=== PATIENT | male | born 1975 | race Caucasian/White ===

== ENCOUNTER 2020-05-17 13:54 | Emergency (ER) | payer OTHER ==
[2020-05-17 13:59] VITALS: BP 138/90; PULSE 73; RESP 18; TEMP 98
--- NOTE | 2020-05-17 14:16 | ED ---
Back Pain HPI - General Chief Complaint: Back Pain/Injury Stated Complaint: Fall-Back Pain Source: patient Limitations: no limitations - History of Present Illness Initial Comments: 44-year-old male presenting to the emergency department with a chief complaint of a back injury. Patient reports incident occurred yesterday while he was walking down the stairs. Patient states he was carrying things and both of his hands when his foot slipped and he fell mostly on the right side of his lower back. Patient reports he felt like his back was "locking up". He states he has been taking ibuprofen which has alleviated his symptoms. States that he is completely back to baseline but his employer is requiring a work note for clearance. Patient denies any head injuries, blood thinners or LOC. Denies any saddle anesthesia, urinary retention with overflow incontinence or bowel incontinence. - Related Data Previous Rx's Medication Instructions Recorded Amoxicillin/Potassium Clav 1 each PO Q12HR #20 tab 02/17/14 [Augmentin 875-125 Tablet] Clindamycin [Cleocin] 450 mg PO Q6H #40 capsule 02/17/14 Sulfamethox-Tmp 800-160Mg [Bactrim 1 each PO Q12HR #20 tab 02/17/14 DS 800-160 mg] Allergies Allergy/AdvReac Type Severity Reaction Status Date / Time sulfamethoxazole Allergy Swelling Verified 05/17/20 13:56 [From Bactrim] trimethoprim [From Bactrim] Allergy Swelling Verified 05/17/20 13:56 Review of Systems ROS Statement: Those systems with pertinent positive or pertinent negative responses have been documented in the HPI. ROS Other: All systems not noted in ROS Statement are negative. Past Medical History Past Medical History: No Reported History History of Any Multi-Drug Resistant Organisms: MRSA Date of last positivie culture/infection: 2008 MDRO Source:: shoulder Past Surgical History: No Surgical Hx Reported Past Psychological History: No Psychological Hx Reported Smoking Status: Current every day smoker Past Alcohol Use History: Daily Past Drug Use History: Marijuana General Exam Limitations: no limitations General appearance: alert, in no apparent distress Head exam: Present: atraumatic, normocephalic, normal inspection Eye exam: Present: normal appearance, PERRL, EOMI Pupils: Present: normal accommodation ENT exam: Present: normal exam, normal oropharynx, mucous membranes moist Neck exam: Present: normal inspection, full ROM. Absent: tenderness Respiratory exam: Present: normal lung sounds bilaterally. Absent: respiratory distress, wheezes Cardiovascular Exam: Present: regular rate, normal rhythm, normal heart sounds GI/Abdominal exam: Present: soft. Absent: distended, tenderness, guarding, rebound Extremities exam: Present: normal inspection, full ROM, normal capillary refill Back exam: Present: normal inspection, full ROM, tenderness (Mild tenderness to the right lumbosacral region). Absent: muscle spasm, vertebral tenderness Neurological exam: Present: alert, oriented X3, normal gait Psychiatric exam: Present: normal affect, normal mood Skin exam: Present: warm, dry, intact, normal color Course Vital Signs 05/17/20 13:56 Temperature 98 F Pulse Rate 73 Respiratory 18 Rate Blood Pressure 138/90 O2 Sat by Pulse 99 Oximetry Medical Decision Making - Medical Decision Making 44-year-old male presenting to the emergency department with a chief complaint of back injury. Physical examination, patient is mild tenderness to the right on the sacral region. No concern for cauda equina. No red flags. Patient was offered imaging and analgesia, he declined. Patient is only here for work clearance. Return parameters discussed the patient was understanding and agreeable. Case discussed with physician. Disposition Clinical Impression: Mechanical back pain Disposition: HOME SELF-CARE Condition: Stable Instructions (If sedation given, give patient instructions): Acute Low Back Pain (ED) Additional Instructions: Follow-up with primary care physician. Return to emergency department if symptoms worsen. Is patient prescribed a controlled substance at d/c from ED?: No Referrals: None,Stated [Primary Care Provider] - 1-2 days Time of Disposition: 14:21
== END 2020-05-17 14:30 | disposition home or self-care (01) ==
LOC: EC 13:54
DX: S39.92XA Unspecified injury of lower back, initial encounter (principal); F17.200 Nicotine dependence, unspecified, uncomplicated; Z88.2 Allergy status to sulfonamides; Z88.1 Allergy status to other antibiotic agents; Z86.14 Personal history of Methicillin resistant Staphylococcus aureus infection; W01.0XXA Fall on same level from slipping, tripping and stumbling without subsequent striking against object, initial encounter; Y93.01 Activity, walking, marching and hiking; Y92.009 Unspecified place in unspecified non-institutional (private) residence as the place of occurrence of the external cause
CPT/HCPCS: 99283

== ENCOUNTER 2022-07-03 17:20 | Emergency (ER) | payer OTHER ==
[2022-07-03 17:55] VITALS: BP 121/76; PULSE 80; RESP 20; TEMP 98
[2022-07-03] MEDS ORDERED: DEXAMETHASONE SOD PHOSPHATE 10 MG/ML 1 ML VIAL IM STA (17:59)
[2022-07-03] MEDS ORDERED: KETOROLAC 15 MG/ML 1 ML VIAL IM STA (17:59)
[2022-07-03] MEDS ORDERED: ORPHENADRINE 30 MG/ML 2 ML VIAL IM STA (17:59)
--- NOTE | 2022-07-03 18:59 | XR ---
EXAMINATION TYPE: XR lumbar spine 2 or 3V DATE OF EXAM: 07/03/2022 6:48 PM INDICATION: Patient age:Male; 47 years old; Reason for study: back injury and pain; COMPARISON: None TECHNIQUE: Frontal, lateral and coned in L5-S1 lateral views of the spine. FINDINGS: No evidence of any acute osseous pathology. No evidence of loss of vertebral body height i s seen. There is normal alignment of the lumbar vertebral bodies. Mild scattered disc space narrowing . Multilevel marginal osteophyte formation throughout the visualized spine. There is facet joint arth ropathy throughout the spine. The neural foraminal stenosis are grossly patent.. IMPRESSION: 1. No acute fracture. 2. Mild multilevel disc degeneration.
--- NOTE | 2022-07-03 19:07 | XR ---
EXAMINATION TYPE: XR Hip RT and AP Pelvis DATE OF EXAM: 07/03/2022 6:48 PM INDICATION: Patient age:Male; 47 years old; Reason for study: back injury and pain; PHH. COMPARISON: None. TECHNIQUE: The right hip was examined in the frontal and lateral projections and a AP pelvis. FINDINGS: No evidence for acute process, joint dislocation or significant soft tissue swelling. IMPRESSION: No acute process.
--- NOTE | 2022-07-03 19:12 | ED ---
Back Pain HPI - General Chief Complaint: Back Pain/Injury Stated Complaint: Lower back pain/Rt side Time Seen by Provider: 07/03/22 17:56 Source: patient Limitations: no limitations - History of Present Illness Initial Comments: Patient is a 47-year-old male presenting with chief complaint of lower back pain. Patient states that he had slipped but did not fall on ice 2 days ago and has been experiencing lower back pain ever since. Pain is mainly located on the right side and radiates down to the hip. No loss of consciousness and no neck pain. No loss of bowel or bladder control or saddle paresthesia. No numbness, tingling, weakness. - Related Data Previous Rx's Medication Instructions Recorded Amoxicillin/Potassium Clav 1 each PO Q12HR #20 tab 02/17/14 [Augmentin 875-125 Tablet] Clindamycin [Cleocin] 450 mg PO Q6H #40 capsule 02/17/14 Sulfamethox-Tmp 800-160Mg [Bactrim 1 each PO Q12HR #20 tab 02/17/14 DS 800-160 mg] Cyclobenzaprine [Flexeril] 10 mg PO HS PRN #20 tab 07/03/22 methylPREDNISolone Dose Pack 4 mg PO DIRECTED #1 packet 07/03/22 [Medrol Dose Pack] Allergies Allergy/AdvReac Type Severity Reaction Status Date / Time sulfamethoxazole Allergy Swelling Verified 07/03/22 17:54 [From Bactrim] trimethoprim [From Bactrim] Allergy Swelling Verified 07/03/22 17:54 Review of Systems ROS Statement: Those systems with pertinent positive or pertinent negative responses have been documented in the HPI. ROS Other: All systems not noted in ROS Statement are negative. Past Medical History Past Medical History: No Reported History History of Any Multi-Drug Resistant Organisms: MRSA Date of last positivie culture/infection: 2008 MDRO Source:: shoulder Past Surgical History: No Surgical Hx Reported Past Psychological History: No Psychological Hx Reported Smoking Status: Current every day smoker Past Alcohol Use History: Daily Past Drug Use History: Marijuana General Exam Limitations: no limitations General appearance: alert, in no apparent distress Head exam: Present: atraumatic, normocephalic, normal inspection Eye exam: Present: normal appearance Neck exam: Present: normal inspection, full ROM Respiratory exam: Present: normal lung sounds bilaterally. Absent: respiratory distress, wheezes, rales, rhonchi, stridor Cardiovascular Exam: Present: regular rate, normal rhythm, normal heart sounds. Absent: systolic murmur, diastolic murmur, rubs, gallop, clicks Back exam: Present: normal inspection, paraspinal tenderness. Absent: vertebral tenderness Neurological exam: Present: alert, oriented X3, CN II-XII intact Psychiatric exam: Present: normal affect, normal mood Skin exam: Present: warm, dry, intact, normal color. Absent: rash Course Vital Signs 07/03/22 17:52 Temperature 98.0 F Pulse Rate 80 Respiratory 20 Rate Blood Pressure 121/76 O2 Sat by Pulse 99 Oximetry Medical Decision Making - Medical Decision Making Was pt. sent in by a medical professional or institution (, PA, CLERICAL ASSIGNER, urgent care, hospital, or prison...) When possible be specific @ -[No] Did you speak to anyone other than the patient for history (EMS, parent, family, police, friend...)? What history was obtained from this source @ -[No] Did you review nursing and triage notes (agree or disagree)? Why? @ -[I reviewed and agree with nursing and triage notes] Were old charts reviewed (outside hosp., previous admission, EMS record, old EKG, old radiological studies, urgent care reports/EKG's, prison records)? Report findings @ -[No old charts were reviewed] Differential Diagnosis (chest pain, altered mental status, abdominal pain women, abdominal pain men, vaginal bleeding, weakness, fever, dyspnea, syncope, headache, dizziness, GI bleed, back pain, seizure, CVA, palpatations, mental health, musculoskeletal)? @ - [facility] Differential Back Pain: Strain, zoster, cauda equina syndrome, epidural abscess, vertebral osteomyelitis, discitis, fracture, subluxation, disc herniation, DJD, spinal stenosis, dissection, AAA, pancreatitis, peptic ulcer disease, pyelonephritis, kidney stone this is not meant to be an all-inclusive list. EKG interpreted by me (3pts min.). @ -[As above] X-rays interpreted by me (1pt min.). @ -X-rays showed no acute process CT interpreted by me (1pt min.). @ -[None done] U/S interpreted by me (1pt. min.). @ -[None done] What testing was considered but not performed or refused? (CT, X-rays, U/S, labs)? Why? @ -[None] What meds were considered but not given or refused? Why? @ -[None] Did you discuss the management of the patient with other professionals (gabo hernandez i.e. , PA, CLERICAL ASSIGNER, lab, RT, psych nurse, manager social media, assistant center director, teacher, forest fire control officer, home health care case manager)? Give summary @ -[No] Was smoking cessation discussed for >3mins.? @ -[No] Was critical care preformed (if so, how long)? @ -[No] Were there social determinants of health that impacted care today? How? (Homelessness, low income, unemployed, alcoholism, drug addiction, transportation, low edu. Level, literacy, decrease access to med. care, correction, rehab)? @ -[No] Was there de-escalation of care discussed even if they declined (Discuss DNR or withdrawal of care, Hospice)? DNR status @ -[No] What co-morbidities impacted this encounter? (DM, HTN, Smoking, COPD, CAD, Cancer, CVA, ARF, Chemo, Hep., AIDS, mental health diagnosis, sleep apnea, morbid obesity)? @ -[None] Was patient admitted / discharged? Hospital course, mention meds given and route, prescriptions, significant lab abnormalities, going to OR and other pertinent info. @ -Patient is a 47-year-old male presenting with chief complaint of back pain after he slipped on ice but did not fall 2 days ago. No red flag symptoms. Patient was given Toradol, Norflex, and Decadron. On reassessment he reports improvement in his symptoms. X-rays are negative. Patient is educated on supportive treatment at home and provided with prescription for Flexeril and Medrol Dosepak. Follow-up with PCP. Report back to ER with any new or worsening symptoms. Discussed return parameters and answered all questions. Patient conveyed verbal understanding and agreed to the plan. I discussed this case in detail with my attending Dr. Allen Undiagnosed new problem with uncertain prognosis? @ -[No] Drug Therapy requiring intensive monitoring for toxicity (Heparin, Nitro, Insulin, Cardizem)? @ -[No] Were any procedures done? @ -[No] Diagnosis/symptom? @ -Mechanical Back pain Acute, or Chronic, or Acute on Chronic? @ -Acute Uncomplicated (without systemic symptoms) or Complicated (systemic symptoms)? @ -Uncomplicated Side effects of treatment? @ -[No] Exacerbation, Progression, or Severe Exacerbation? @ -[No] Poses a threat to life or bodily function? How? (Chest pain, [place], [place], pneumonia, PE, COPD, DKA, ARF, appy, cholecystitis, CVA, Diverticulitis, Homicidal, Suicidal, threat to staff... and all critical care pts) @ -[No] Disposition Clinical Impression: Mechanical back pain Disposition: HOME SELF-CARE Condition: Good Instructions (If sedation given, give patient instructions): Acute Low Back Pain (ED), Lower Back Exercises (ED) Additional Instructions: Follow-up with PCP. Report back to ER with any new or worsening symptoms. Take medication as prescribed, do not take cyclobenzaprine before driving or operating heavy machinery as it may cause drowsiness. Take Motrin and Tylenol as needed for pain control. Prescriptions: Cyclobenzaprine [Flexeril] 10 mg PO HS PRN #20 tab PRN Reason: Spasms methylPREDNISolone Dose Pack [Medrol Dose Pack] 4 mg PO DIRECTED #1 packet Is patient prescribed a controlled substance at d/c from ED?: No Referrals: None,Stated [Primary Care Provider] - 1-2 days Time of Disposition: 19:12
== END 2022-07-03 19:32 | disposition home or self-care (01) ==
LOC: EC 17:20
DX: M54.50 Low back pain, unspecified (principal); F17.200 Nicotine dependence, unspecified, uncomplicated; F12.90 Cannabis use, unspecified, uncomplicated; Z88.2 Allergy status to sulfonamides; Z88.8 Allergy status to other drugs, medicaments and biological substances
CPT/HCPCS: 72100; 73502; 99283; 96372 ×3; J1100; J2360; J1885

== ENCOUNTER 2022-12-12 12:07 | Day surgery (SDC) | payer OTHER ==
[2022-12-08 17:26] VITALS: BMI 19.5
[~2022-12-12 12:07] MED LIST: Pre Op ABX Message 1 EACH MISC MISCELLANE ONE
[2022-12-12] MEDS ORDERED: LACTATED RINGERS 1,000 ML IV SCH (12:34)
[2022-12-12] MEDS ORDERED: ONDANSETRON 4 MG/2 ML VIAL IVP ONE (12:34)
[2022-12-12] MEDS ORDERED: DEXAMETHASONE SOD PHOSPHATE 4 MG/ML 1 ML VIAL IV ONE (12:34)
[2022-12-12] MEDS ORDERED: SCOPOLAMINE 1 MG/72 HR PATCH TRANSDERM ONE (12:34)
[2022-12-12] MEDS ORDERED: HYDROmorphone 0.5 MG/0.5 ML SYRINGE IVP PRN (12:34)
[2022-12-12] MEDS ORDERED: MIDAZOLAM 2 MG/2 ML VIAL IV PRN (12:34)
[2022-12-12] MEDS ORDERED: PROPOFOL 10 MG/ML 20 ML VIAL IV ONE (13:22)
[2022-12-12] MEDS ORDERED: MIDAZOLAM 2 MG/2 ML VIAL ONE (13:22)
[2022-12-12] MEDS ORDERED: fentaNYL (PF) 50 MCG/ML 2 ML AMP ONE (13:22)
[2022-12-12] MEDS ORDERED: LIDOCAINE 2% INJ 20 MG/ML (2 ML VIAL) ONE (13:22)
[2022-12-12] MEDS ORDERED: SODIUM CHLORIDE 0.9% 100 ML BAG ONE (13:22)
[2022-12-12] MEDS ORDERED: ceFAZolin 1,000 MG VIAL ONE (13:22)
[2022-12-12] MEDS ORDERED: SODIUM CHLORIDE 0.9% 50 ML with ceFAZolin 1,000 MG IV ONE ×2 (13:27)
[2022-12-12] MEDS ORDERED: BUPIVACAINE (PF) 0.25% 10 ML VIAL SQ ONE (13:43)
[2022-12-12 14:25] VITALS: TEMP 96.8
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
[2022-12-12] MEDS ORDERED: HYDROmorphone 0.5 MG/0.5 ML SYRINGE IVP ONE (14:42)
[2022-12-12 15:13] VITALS: RESP 20
[2022-12-12] MEDS ORDERED: IBUPROFEN 600 MG TAB PO ONE (15:18)
[2022-12-12 15:32] VITALS: BP 125/85; PULSE 66
== END 2022-12-12 15:52 | disposition home or self-care (01) ==
LOC: OR 12:07
PROVIDERS: ATTEND Orthopaedic Surgery
DX: S60.551A Superficial foreign body of right hand, initial encounter (principal); Z86.59 Personal history of other mental and behavioral disorders; Z88.8 Allergy status to other drugs, medicaments and biological substances; J44.9 Chronic obstructive pulmonary disease, unspecified; Z87.891 Personal history of nicotine dependence; Z79.899 Other long term (current) drug therapy
CPT/HCPCS: 20520; J2250; J1100; J2405; J0690; J3010; J2704; J1170; J2001; J0665

== ENCOUNTER 2023-10-10 11:24 | Emergency (ER) | payer OTHER ==
[2023-10-10 11:39] VITALS: RESP 18
--- NOTE | 2023-10-10 12:49 | XR ---
EXAMINATION TYPE: XR elbow complete LT DATE OF EXAM: 10/10/2023 COMPARISON: None HISTORY: Pain TECHNIQUE: 3 view left elbow FINDINGS: Anterior fat pad is normal. No elevation of posterior fat pad is evident. Radius aligns nor annita with the humerus. No acute fracture or dislocation evident. Follow up exams 10 days from acute trauma for continued pain. IMPRESSION: 1. No acute osseous abnormalities left elbow
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
[2023-10-10 13:37] VITALS: BP 128/78; PULSE 76; TEMP 98.1
== END 2023-10-10 16:01 | disposition home or self-care (01) ==
LOC: EC 11:24
DX: S53.402A Unspecified sprain of left elbow, initial encounter (principal); M77.12 Lateral epicondylitis, left elbow; F17.200 Nicotine dependence, unspecified, uncomplicated; Z88.1 Allergy status to other antibiotic agents; Z88.2 Allergy status to sulfonamides; X58.XXXA Exposure to other specified factors, initial encounter
CPT/HCPCS: 99283